=== PATIENT | male | born 1995 | race Caucasian/White ===

== ENCOUNTER 2016-06-07 14:56 | Emergency (ER) | payer BC ==
[2016-06-07 16:12] VITALS: BP 133/87
--- NOTE | 2016-06-07 17:14 | UC ---
Respiratory Complaint HPI - HPI Summary HPI Summary: 20 year old with intermittent cough. Has had cough for 3 weeks. Cough went away and returned 2 days ago and much worse. Has had fevers but no chills. He has myalgias and body aches . Goes to [employer] and cough worse in class. (+) voice loss and nausea. He did not get a flu shot and feels the body aches really got much worse in the past 24 hours. He states potential expoaure to flu at school - History of Current Complaint Chief Complaint: UCRespiratory Stated Complaint: FLU LIKE Time Seen by Provider: 06/07/16 17:04 Hx Obtained From: Patient Onset/Duration: Gradual Onset Timing: Constant Severity Initially: Mild Severity Currently: Moderate Character: Cough: Nonproductive Aggravating Factors: Nothing Alleviating Factors: Nothing Associated Signs And Symptoms: Positive: Pleuritic Chest Pain, Nasal Congestion. Negative: Fever, Chills - Risk Factors Pulmonary Embolism Risk Factors: Negative Cardiac Risk Factors: Negative Pseudomonas Risk Factors: Negative Tuberculosis Risk Factors: Negative - Allergies/Home Medications Allergies/Adverse Reactions: Allergies Allergy/AdvReac Type Severity Reaction Status Date / Time No Known Allergies Allergy Verified 06/07/16 16:12 PMH/Surg Hx/FS Hx/Imm Hx Previously Healthy: Yes Endocrine History Of: Denies: Diabetes Respiratory History Of: Denies: COPD GI/ History Of: Denies: Gastroesophageal Reflux Neurological History Of: Denies: CVA Cancer History Of: Denies: Lung Cancer - Surgical History Surgical History: None - Family History Known Family History: Positive: None - Social History Occupation: Student Lives: Alone Alcohol Use: None Substance Use Type: None Smoking Status (MU): Never Smoked Tobacco Review of Systems Constitutional: Fever, Chills, Fatigue Skin: Negative Eyes: Negative ENT: Negative Respiratory: Cough Cardiovascular: Negative Gastrointestinal: Negative Genitourinary: Negative Motor: Negative Neurovascular: Negative Musculoskeletal: Myalgia Neurological: Negative Psychological: Negative All Other Systems Reviewed And Are Negative: Yes Physical Exam Triage Information Reviewed: Yes Appearance: Well-Appearing, No Pain Distress, Well-Nourished Vital Signs: Initial Vital Signs Temp 98.7 F 06/07/16 16:10 Pulse 100 06/07/16 16:10 Resp 16 06/07/16 16:10 BP 133/87 06/07/16 16:10 Pulse Ox 100 06/07/16 16:10 Vital Signs Reviewed: Yes Eye Exam: Normal ENT Exam: Normal ENT: Positive: Pharynx normal, Nasal drainage, TMs normal, TM dull - left Dental Exam: Normal Neck exam: Normal Neck: Positive: 1 Respiratory Exam: Normal Cardiovascular Exam: Normal Musculoskeletal Exam: Normal Neurological Exam: Normal Psychological Exam: Normal Skin Exam: Normal UC Diagnostic Evaluation - Laboratory O2 Sat by Pulse Oximetry: 100 Respiratory Course/Dx - Differential Dx/Diagnosis Differential Diagnosis/HQI/PQRI: Bronchitis, Influenza, Laryngitis, Sinusitis Provider Diagnoses: Influenza Discharge - Discharge Plan Condition: Good Disposition: HOME Prescriptions: Oseltamivir CAP* [Tamiflu CAP*] 75 mg PO BID #10 cap Patient Education Materials: Influenza (ED) Referrals: Non Staff,Doctor [Primary Care Provider] - 3 Days Additional Instructions: Please also start nasal saline rinses and drink plenty of fluids and return if your symptoms are not improved.
== END 2016-06-07 17:23 | disposition home or self-care (01) ==
LOC: UCCORT 14:56
DX: J11.1 Influenza due to unidentified influenza virus with other respiratory manifestations (principal)
CPT/HCPCS: 99202; G0463